=== PATIENT | female | born 1975 | race Caucasian/White ===

== ENCOUNTER → 2016-12-09 | Outpatient (CLI) | payer BC ==
[2016-12-09 16:01] LABS: HEMOGLOBIN 13.8 g/dL (12.2-16.2); LYMPH % 33.5 % (10-50.0)
[2016-12-09 16:41] LABS: BUN 9 mg/dL (7-18)
[2016-12-09 16:44] LABS: GFR (ESTIMATED) 91 ML/MIN (59-)
== END ==
LOC: LAB 15:43
PROVIDERS: Nurse Practitioner Obstetrics & Gynecology
DX: N92.0 Excessive and frequent menstruation with regular cycle (principal); Z01.818 Encounter for other preprocedural examination